=== PATIENT | female | born 1985 | race Caucasian/White ===

== ENCOUNTER 2016-12-09 08:31 | Inpatient (IN) | payer MEDICAID ==
[~2016-12-09] VITALS: Ht 160 cm; Wt 66.9 kg
[~2016-12-09 08:31] MED LIST: PREN-29 PO
[2016-12-09 08:41] VITALS: Ht 160 cm; Wt 66.9 kg
[2016-12-09 08:42] VITALS: BP 116/90
--- NOTE | 2016-12-09 08:58 | TRIAGE ---
OB Triage Datetime Report Generated by CPN: 12/09/2016 08:57 Datetime: 12/09/2016 08:46 Stage of : OB Triage Assessment Type: Triage Maternal Assessment Level of Consciousness: Fully Conscious DTR's/Clonus: DTRs 2+; No Clonus Headache: Denies Blurred Vision: No Respiratory Effort: Unlabored; Regular Rhythm; Equal Expansion Breath Sounds, Left: Clear and Equal Breath Sounds, Right: Clear and Equal Nausea/Vomiting: Denies RUQ Epigastric Pain: Denies Lower Extremities Edema: None Degree: None Upper Extremities Edema: None Degree: None Facial Edema: None Temperature Route: Oral Fall Risk Assessment History of Falling: (0) No Secondary Diagnosis: (0) No Ambulatory Aid: (0) Bedrest/Nurse Assist IV Therapy: (0) No Gait: (0) Normal/Bedrest/Immobile Mental Status: (0) Oriented to Own Ability Fall Score: 0 Fall Risk Score Definition: No Risk: No action required Labor Evaluation Frequency: 1-3 Monitor Mode: External Duration (sec)2399: 30-50 Pattern: Normal: <= 5 Contractions in 10 Minutes Heart Rate FHR Baseline Rate: 145 Monitor Mode: External US Variability: Moderate 6-25 bpm Accelerations: 15X15 Category: Category I Pain Assessment Pain Scale: 4 Pain Presence: Intermittent Pain Type: Cramping; Contraction Pain Location: Abdomen Vaginal Exam Dilatation (cms): 5.0 Effacement (%): 90 Station: -2 Exam By: Venkatesh DEL TORO Membrane Status: Intact Datetime: 12/09/2016 08:45 Time of Arrival: 12/09/2016 08:00 EGA: 38.5 Arrived By: Wheelchair Arrived From: Home Chief Complaint: UC'S Movement: Present Contractions: Regular Time Contractions Began: 12/09/2016 01:00 Contractions: X 3 MINUTES Rupture of Membranes: Denies Vaginal Bleeding: None Vaginal Discharge: Denies Recent Sexual Intercouse: Denies Abdominal Trauma: Not Applicable Patient Complaints: Contractions Initial Plan: EFM VE
[2016-12-09] MEDS ORDERED: BUTORPHANOL 2 MG INJ IV PRN (09:00)
[2016-12-09] MEDS ORDERED: OXYTOCIN 30 UNITS/LR 500 ML IV PRN ×2 (09:00→16:30)
[2016-12-09] MEDS ORDERED: OXYTOCIN 30 UNITS/LR 500 ML IV SCH ×2 (09:00)
[2016-12-09] MEDS ORDERED: MISOPROSTOL 200 MCG TAB PR PRN ×2 (09:00→16:30)
[2016-12-09] MEDS ORDERED: CARBOPROST 250 MCG INJ IM PRN ×2 (09:00→16:30)
[2016-12-09] MEDS ORDERED: AMPICILLIN 2 GM/NS (PMX) 100 ML IV ONE (09:00)
[2016-12-09] MEDS ORDERED: LACTATED RINGER'S 1,000 ML IV PRN (09:00)
[2016-12-09] MEDS ORDERED: LIDOCAINE 1% (MPF) 30 ML INJ INJ PRN (09:00)
[2016-12-09] MEDS ORDERED: METHYLERGONOVINE 0.2 MG INJ IM PRN ×2 (09:00→16:30)
[2016-12-09] MEDS: LACTATED RINGER'S 1,000 ML IV SCH ×2 (09:42→11:08)
[2016-12-09 10:05] LABS: BASOPHILS % 0.4 % (0.0-2.0); EOSINOPHILS # 0.1 10^3/ul (0.0-0.5); EOSINOPHILS % 0.5 % (0.0-7.0); HEMATOCRIT 36.5 % (37.0-47.0); HEMOGLOBIN 12.6 g/dl (12.0-16.0); LYMPHOCYTES # 1.5 10^3/ul (0.8-2.9); LYMPHOCYTES % 15.5 % (15.0-51.0); MEAN CORPUSCULAR HEMOGLOBIN 29.4 pg (29.0-33.0); MEAN CORPUSCULAR HGB CONC 34.5 g/dl (32.0-37.0); MEAN CORPUSCULAR VOLUME 85.1 fl (82.0-101.0); MEAN PLATELET VOLUME 12.1 fl (7.4-10.4); MONOCYTE # 0.6 10^3/ul (0.3-0.9); MONOCYTES % 6.2 % (0.0-11.0); NEUTROPHILS % 76.8 % (39.0-77.0); PLATELET COUNT 168 10^3/UL (140-415); RED BLOOD COUNT 4.29 10^6/ul (4.20-5.40); RED CELL DISTRIBUTION WIDTH 15.4 % (11.5-14.5); WHITE BLOOD COUNT 9.7 10^3/ul (4.8-10.8)
[2016-12-09 10:24] LABS: INR 0.93; PARTIAL THROMBOPLASTIN TIME 27.1 Sec (25.0-35.0); PROTIME 12.5 Sec (12.2-14.2)
[2016-12-09] MEDS ORDERED: FENTAnyl 2MCG/ML-ROPIV 0.2% 100 ML BAG EPI SCH (11:30)
[2016-12-09] MEDS ORDERED: NALOXONE (0.4 MG/ML) INJ IV PRN (11:30)
[2016-12-09] MEDS ORDERED: AMPICILLIN 1 GM/NS (PMX) 50 ML IV SCH (13:00)
[2016-12-09] MEDS ORDERED: MINERAL OIL LIGHT 10 ML VIAL TOP ONE (13:30)
--- NOTE | 2016-12-09 13:56 | HP ---
Date/Time of Note Date/Time of Note DATE: 12/09/16 TIME: 13:52 OB - History Hx of Present Free Text/Dictation 31 y/o female admitted in active labor Chief Complaint: labor pains Last Menstrual Period: Mar 13, 2016 Estimated Due Date: Dec 18, 2016 : 2 Para: 1 Care: None Obstetrical Complications: None Past Family/Social History * Past Medical, Surgical, Family and Obstetric Histories reviewed from chart. Blood Type: A+ Rubella: immune RPR/VDRL: Negative GBS Status: Negative HBsAG: Negative OB Admission Exam Vital Signs Vital Signs Vital Signs Date Time Temp Pulse Resp B/P Pulse Ox O2 Delivery O2 Flow Rate FiO2 12/09/16 08:42 98.0 116/90 Room Air Physical Exam HEENT: WNL Heart: Rhythm Normal Lungs: Clear, Equal Abdomen: WNL Extremities: Normal Reflexes: Normal Cervical Dilatation: 5cm Effacement: 100% Station: -2 Membranes: Intact Heart Rate: 130's Accelerations: Accelerations Present Decelerations: No Decelerations Varibility: Marked Contractions on Admission: < 5 Minutes Apart Date/Time Contractions Began: 12/09/2016 1 am Frequency of Contractions: q3 Duration: .60 SECONDS Intensity: Firm Last 72 hours Lab Results CBC & BMP 12/09/16 09:35 OB Assessment/Plan Reason for admission: active labor Other Assessment: TERM GESTATION Other plan: proceed with labor HEATHER MCBRIDE MD Dec 09, 2016 13:56
--- NOTE | 2016-12-09 13:59 | LDN ---
Date/Time of Note Date/Time of Note DATE: 12/09/16 TIME: 13:57 Delivery Summary Normal spontaneous vaginal delivery of a viable over intact perineum Weeks of Gestation 38+ Placenta Delivered: Spontaneously, Intact & Complete Meconium: none Episiotomy: No Perineal laceration: 0 Anesthesia type: Epidural Estimated blood loss: 200 Sponge & Needle done & correct: Yes All needle counts correct: Yes Any foreign bodies felt in the: No Problems: Infant Delivery Information Sex Sex: male Apgars 1 Minute: 9 5 Minute: 9 Suctioning Nose & mouth suctioned at justin: Yes Delee suction performed: No Umbilical Cord Umbilical cord with: 3 Vessels Cord presentations: nuchal cord Cord Blood was obtained: Yes Mother & Baby Disposition Disposition Mom & Baby to Maternity; Good: Yes (Mother and baby were recovered in good condition) Mom transferred to: Other (Maternity) Baby to NICU: No HEATHER MCBRIDE MD Dec 09, 2016 13:59
[2016-12-09 16:00] VITALS: BP 109/56; PULSE 65; RESP 18
[2016-12-09] MEDS ORDERED: LACTATED RINGER'S 1,000 ML IV* SCH (16:07)
[2016-12-09 16:30] VITALS: BP 110/59; PULSE 64; RESP 18
[2016-12-09] MEDS ORDERED: ZOLPIDEM 5 MG TAB PO PRN (16:30)
[2016-12-09] MEDS ORDERED: WITCH HAZEL/GLYCERIN PAD PR PRN (16:30)
[2016-12-09] MEDS ORDERED: HYDROCODONE/APAP (5/325) TAB PO PRN ×2 (16:30)
[2016-12-09] MEDS ORDERED: DIBUCAINE 1% 30 GM OINT TOP PRN (16:30)
[2016-12-09] MEDS ORDERED: LANOLIN 7 GM TUBE TOP PRN (16:30)
[2016-12-09] MEDS ORDERED: BENZOCAINE 20% 56 ML SPRAY TOP PRN (16:30)
[2016-12-09] MEDS: IBUPROFEN 600 MG TAB PO SCH (17:43)
[2016-12-09] MEDS: CEPHALEXIN 500 MG CAP PO SCH (17:43)
[2016-12-09 20:00] VITALS: BP 107/62; PULSE 68; RESP 18
[2016-12-09] MEDS: SENNA/DOCUSATE NA (8.6MG/50MG) TAB PO SCH (21:00)
[2016-12-09] MEDS: MAGNESIUM HYDROXIDE 30ML CUP PO SCH (21:00)
[2016-12-10] MEDS: CEPHALEXIN 500 MG CAP PO SCH ×4 (00:11→17:32)
[2016-12-10] MEDS: IBUPROFEN 600 MG TAB PO SCH ×4 (00:11→17:31)
[2016-12-10 03:52] VITALS: BP 90/66; PULSE 66; RESP 18
[2016-12-10 08:00] VITALS: BP 110/63; PULSE 65; RESP 18
[2016-12-10] MEDS: MAGNESIUM HYDROXIDE 30ML CUP PO SCH ×2 (08:34→20:19)
[2016-12-10] MEDS: SENNA/DOCUSATE NA (8.6MG/50MG) TAB PO SCH ×2 (08:34→20:19)
[2016-12-10 08:49] LABS: BASOPHILS % 0.3 % (0.0-2.0); EOSINOPHILS # 0.1 10^3/ul (0.0-0.5); HEMATOCRIT 33.5 % (37.0-47.0); HEMOGLOBIN 11.4 g/dl (12.0-16.0); LYMPHOCYTES # 2.2 10^3/ul (0.8-2.9); LYMPHOCYTES % 19.1 % (15.0-51.0); MEAN CORPUSCULAR HEMOGLOBIN 29.2 pg (29.0-33.0); MEAN CORPUSCULAR VOLUME 85.9 fl (82.0-101.0); MEAN PLATELET VOLUME 12.2 fl (7.4-10.4); MONOCYTE # 0.7 10^3/ul (0.3-0.9); MONOCYTES % 6.2 % (0.0-11.0); NEUTROPHILS % 72.5 % (39.0-77.0); PLATELET COUNT 149 10^3/UL (140-415); RED CELL DISTRIBUTION WIDTH 15.9 % (11.5-14.5); WHITE BLOOD COUNT 11.6 10^3/ul (4.8-10.8)
[2016-12-10 16:00] VITALS: BP 103/58; PULSE 58; RESP 18
--- NOTE | 2016-12-10 18:24 | DS ---
Date/Time of Note Date/Time of Note Home following day or today DATE: 12/10/16 TIME: 18:22 Obstetrical Discharge Record Final Diagnosis Final Diagnosis: Term delivered Other Final Diagnosis Status post vaginal delivery Vaginal Delivery Obstetrical Delivery: Spontaneous Condition on Discharge Physical Assessment Last Vitals: See nurse's note Voiding: Yes Bowel Movement: Yes Breast: Soft, non-tender, Filling Fundus: Firm Abdomen and Incision: Abdomen is soft bowel sounds present Episiotomy: Not applicable Perineum is clean Calf Tenderness: No Patient Condition: Good HEATHER MCBRIDE MD Dec 10, 2016 18:23
[2016-12-10] MEDS ORDERED: IBUP-1542 PO (18:25)
--- NOTE | 2016-12-10 18:25 | PD.PPDC ---
INSULATION TECHNICIAN Discharge Instruction Provider Information Physician Information 31-year-old female admitted in active labor and had vaginal delivery at term Diagnosis Final Diagnosis: Status post vaginal delivery Condition Patient Condition: Good Diet Diet: Resume Regular Diet Activity/Restrictions Activity: Normal Activity May Shower Restrictions: Nothing in the Vagina Return to Work or School: Jan 24, 2017 Follow-up Follow-up with Physician: 4, Week/Weeks (In clinic for follow-up) Return to clinic for OB Instructions: Breast Tenderness Depression HEATHER MCBRIDE MD Dec 10, 2016 18:24
[2016-12-10 19:45] VITALS: BP 110/74; PULSE 72; RESP 18
[2016-12-10 20:00] VITALS: BP 106/62; PULSE 71; RESP 18
[2016-12-11 04:00] VITALS: BP 100/65; PULSE 55; RESP 18
[2016-12-11] MEDS: CEPHALEXIN 500 MG CAP PO SCH ×3 (06:57→12:14)
[2016-12-11] MEDS: IBUPROFEN 600 MG TAB PO SCH ×3 (06:57→12:14)
[2016-12-11] MEDS ORDERED: VARICELLA VACCINE LIVE/PF 1,350 UNIT/0.5 ML ML SC* ONE (09:00)
[2016-12-11] MEDS: SENNA/DOCUSATE NA (8.6MG/50MG) TAB PO SCH (09:00)
[2016-12-11] MEDS ORDERED: DIPHTH/TET/ACEL PERTUSS (ADULT) 0.5 ML VIAL IM* ONE (09:00)
[2016-12-11] MEDS ORDERED: MEASLES,MUMPS,RUBELLA VACCINE INJ SC* ONE (09:00)
[2016-12-11] MEDS: MAGNESIUM HYDROXIDE 30ML CUP PO SCH (09:00)
== END 2016-12-11 15:03 | disposition home or self-care (01) | DRG 775 ==
LOC: OBT 08:31 → L-D 08:31 → OBT 08:55 → L-D 09:01 → PP1 15:54
PROVIDERS: ADMIT Obstetrics & Gynecology; ATTEND Obstetrics & Gynecology
PROC: 10E0XZZ Delivery of Products of Conception, External Approach (ICD-10-PCS; principal; 2016-12-09)
PROC: 3E033VJ Introduction of Other Hormone into Peripheral Vein, Percutaneous Approach (ICD-10-PCS; 2016-12-09)
DX: O69.81X0 Labor and delivery complicated by cord around neck, without compression, not applicable or unspecified (principal); Z37.0 Single live birth; Z3A.38 38 weeks gestation of pregnancy
CPT/HCPCS: 62319; 85025; 85610; 85730; 86592; 86900; 86901; 87340; G0463; J2590; J7120